=== PATIENT | female | born 1970 | race Hispanic/Latino ===

== ENCOUNTER 2024-11-01 10:00 | Emergency (ER) | payer BC ==
[~2024-11-01] VITALS: Ht 157.5 cm; Wt 94.8 kg
[2024-11-01 10:10] VITALS: PULSE 83; RESP 18; TEMP 97.6
[2024-11-01 11:23] VITALS: BP 114/73; PULSE 69; RESP 18; TEMP 97.8; O2SAT 98
== END 2024-11-01 11:21 | disposition home or self-care (01) ==
LOC: FSED 10:14
DX: R05.9 Cough, unspecified (principal); J06.9 Acute upper respiratory infection, unspecified; E03.9 Hypothyroidism, unspecified
CPT/HCPCS: 99282